=== PATIENT | male | born 1930 | race Caucasian/White ===

== ENCOUNTER 2018-10-03 15:05 | Emergency (ER) | payer MEDICARE, OTHER ==
[2018-10-03 16:28] LABS: #Basophils 0.1 thou/uL (0.0-0.2); #Eosinphils 0.1 thou/uL (0.0-0.7); #Lymphocytes 1.3 thou/uL (1.20-3.40); #Monocytes 0.6 thou/uL (0.11-0.59); #Neutrophils 9.8 thou/uL (1.40-6.50); %Basophils 0.4 % (0.0-1.0); %Eosinophils 1.2 % (0.0-10.0); %Lymphocytes 11.1 % (21.0-51.0); %Monocytes 5.2 % (0.0-10.0); Hemoglobin 14.3 g/dL (14.0-18.0); Mean Corpuscular HGB CONC 34.1 g/dL (32.0-36.0); Mean Corpuscular Hemoglobin 29.8 pg (27.0-31.0); Mean Corpuscular Volume 87.3 fL (78.0-98.0); Mean Platelet Volume 6.6 fL (7.4-10.4); Platelet Count 273 thou/uL (130-400); RBC Distribution Width 13.4 % (11.5-14.5); White Blood Cell (WBC) Count 11.9 thou/uL (4.8-10.8)
[2018-10-03 16:48] LABS: ALT (SGPT) 21 U/L (8-55); AST (SGOT) 23 U/L (5-34); Albumin 4.9 g/dL (3.4-4.8); Alkaline Phosphatase 114 U/L (40-150); Anion Gap 15 mmol/L (10-20); BUN (Urea Nitrogen) 23 mg/dL (8.4-25.7); Bilirubin, Total 0.7 mg/dL (0.2-1.2); Calc. Creatinine Clearance 0 mL/min (70-130); Calcium 10.2 mg/dL (7.8-10.44); Carbon Dioxide 27 mmol/L (23-31); Chloride 102 mmol/L (98-107); Estimated GFR-MDRD 38; Globulin 3.2 g/dL (2.4-3.5); Glucose 113 mg/dL (83-110); Potassium 3.6 mmol/L (3.5-5.1); Protein, Total 8.1 g/dL (5.8-8.1); Sodium 140 mmol/L (136-145)
--- NOTE | 2018-10-03 19:31 | RAD ---
CHEST ONE VIEW: ABDOMEN TWO VIEWS: HISTORY: An 88-year-old male with a history of diarrhea and constipation. FINDINGS: CHEST: Postop midline sternotomy. Surgical changes involving the right humerus. No significant acu te intrathoracic disease. Atherosclerosis of the aorta with ectasia. ABDOMEN: Some gas and fecal material noted throughout the colon. Aortobiiliac endostent. Vascular calcifications. No large or small bowel obstruction. No overt calculus. IMPRESSION: No significant acute process. POS: FRANK
== END 2018-10-03 19:05 | disposition home or self-care (01) ==
LOC: ERS 15:05
DX: K59.00 Constipation, unspecified (principal); E78.5 Hyperlipidemia, unspecified; I10 Essential (primary) hypertension; I25.2 Old myocardial infarction; Z87.891 Personal history of nicotine dependence; Z79.899 Other long term (current) drug therapy
CPT/HCPCS: 36415; 74022; 80053; 84443; 85025

== ENCOUNTER 2018-10-15 19:03 | Emergency (ER) | payer MEDICARE, OTHER | END 2018-10-15 20:15 | disposition home or self-care (01) | LOC: ERS 19:03 | DX: K59.00 Constipation, unspecified (principal); I10 Essential (primary) hypertension; E78.5 Hyperlipidemia, unspecified; I71.4 Abdominal aortic aneurysm, without rupture; I25.2 Old myocardial infarction; Z79.899 Other long term (current) drug therapy | CPT/HCPCS: 99283 ==

== ENCOUNTER 2018-11-14 17:01 | Emergency (ER) | payer MEDICARE, OTHER | END 2018-11-14 21:05 | disposition home or self-care (01) | LOC: ERS 17:01 | DX: K56.41 Fecal impaction (principal); E78.5 Hyperlipidemia, unspecified; I10 Essential (primary) hypertension; I25.2 Old myocardial infarction; I71.4 Abdominal aortic aneurysm, without rupture; Z87.891 Personal history of nicotine dependence; Z79.899 Other long term (current) drug therapy | CPT/HCPCS: 99283 ==

== ENCOUNTER 2020-07-16 14:46 | Emergency (ER) | payer MEDICARE, OTHER ==
[2020-07-16 15:36] LABS: Hemoglobin 13.6 g/dL (14.0-18.0); Mean Corpuscular HGB CONC 33.6 g/dL (32.0-36.0); Mean Corpuscular Hemoglobin 29.8 pg (27.0-31.0); Mean Corpuscular Volume 88.6 fL (78.0-98.0); Mean Platelet Volume 7.2 fL (7.4-10.4); Platelet Count 186 thou/uL (130-400); RBC Distribution Width 13.6 % (11.5-14.5); Red Blood Cell (RBC) Count 4.55 mill/uL (4.70-6.10); White Blood Cell (WBC) Count 6.1 thou/uL (4.8-10.8)
[2020-07-16 15:51] LABS: Band 3 % (5-11); Lymphocytes 8 % (21-51); MDiff Complete? YES; Monocytes 10 % (0-10); Neutrophil 68 % (42-75); Platelet Morphology Comment Appears Adequate; RBC Morphology Normal; Reactive Lymphocytes 6 % (0-10)
[2020-07-16 15:55] LABS: ALT (SGPT) 30 U/L (8-55); AST (SGOT) 41 U/L (5-34); Albumin 4.7 g/dL (3.4-4.8); Alkaline Phosphatase 100 U/L (40-110); Anion Gap 16 mmol/L (10-20); BUN (Urea Nitrogen) 16 mg/dL (8.4-25.7); Bilirubin, Total 0.8 mg/dL (0.2-1.2); Calc. Creatinine Clearance 0 mL/min (70-130); Calcium 9.1 mg/dL (7.8-10.44); Carbon Dioxide 21 mmol/L (23-31); Chloride 103 mmol/L (98-107); Estimated GFR-MDRD 35; Glucose 103 mg/dL (83-110); Protein, Total 7.7 g/dL (5.8-8.1); Sodium 136 mmol/L (136-145)
--- NOTE | 2020-07-16 16:32 | RAD ---
EXAM: CHEST ONE VIEW HISTORY: Cough. 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 Cardiac silhouette is within normal limits for the portable technique. Pulmonary vasculature is within normal limits. A portion of the left lung base and left lateral costophrenic angle are excluded from view. However, the lungs are otherwise johnson ar. Vascular calcifications are again seen in the thoracic aorta. Postoperative changes are again seen in the right shoulder. IMPRESSION: No acute cardiopulmonary process.
[2020-07-17 12:01] LABS: SARS-CoV-2 MS2 Positive; SARS-CoV-2 N Gene Positive; SARS-CoV-2 S Gene Positive; SARS-CoV-2 by NAA DETECTED (NotDetected); SARS-CoV-2 orf1ab Positive
--- NOTE | 2020-07-30 16:25 | EKG ---
Test Reason : COUGH Blood Pressure : / mmHG Vent. Rate : 087 BPM Atrial Rate : 087 BPM P-R Int : 176 ms QRS Dur : 088 ms QT Int : 396 ms P-R-T Axes : 017 064 036 degrees QTc Int : 476 ms Normal sinus rhythm Nonspecific ST abnormality Abnormal ECG Confirmed by LUCIO CLEVELAND MD ([id number]), features editor NIKI LEAL ([id number]) on 07/30/2020 4:24:58 PM Referred By: Confirmed By:LUCIO CLEVELAND MD
== END 2020-07-16 17:27 | disposition home or self-care (01) ==
LOC: ERS 14:46
DX: U07.1 COVID-19 (principal); E78.5 Hyperlipidemia, unspecified; E78.00 Pure hypercholesterolemia, unspecified; I10 Essential (primary) hypertension; I25.2 Old myocardial infarction; I71.4 Abdominal aortic aneurysm, without rupture; F03.90 Unspecified dementia, unspecified severity, without behavioral disturbance, psychotic disturbance, mood disturbance, and anxiety; Z87.891 Personal history of nicotine dependence
CPT/HCPCS: 71045; 80053; 83880; 85025; 93005; 99284; U0003; 36415; 87635